=== PATIENT | female | born 1965 ===

== ENCOUNTER 2019-09-18 19:04 | Emergency (ER) | payer OTHER ==
[2019-09-18 20:46] VITALS: BP 144/80
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
[2019-09-18] MEDS ORDERED: FAMOTIDINE 20 MG/2 ML INJ IV ONE (21:13)
[2019-09-18] MEDS ORDERED: IBUPROFEN 800 MG TAB PO ONE (21:13)
[2019-09-18] MEDS ORDERED: ACETAMINOPHEN 500 MG TAB PO ONE (21:13)
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
[2019-09-18 21:49] LABS: Basophils % (Auto) 0.5 % (0.0-1.8); Eosinophils % (Auto) 0.1 % (0.0-4.3); Hemoglobin 13.6 gm/dl (10.1-14.3); Lymphocytes # (Auto) 1.5 K/mm3 (1.2-5.4); Lymphocytes % (Auto) 15.2 % (13.4-35.0); Mean Corpuscular HGB Conc 34 % (30-34); Mean Corpuscular Volume 89 fl (79-97); Monocytes # (Auto) 0.7 K/mm3 (0.0-0.8); Monocytes % (Auto) 6.8 % (0.0-7.3); Platelet Count 223 K/mm3 (140-440); Red Blood Count 4.49 M/mm3 (3.65-5.03); Red Cell Distribution Width 13.3 % (13.2-15.2)
[2019-09-18 22:20] LABS: Alanine Aminotransferase 29 units/L (7-56); Albumin 4.8 g/dL (3.9-5); BUN/Creatinine Ratio 24; Blood Urea Nitrogen 12 mg/dL (7-17); Calcium 9.5 mg/dL (8.4-10.2); Hemolysis Index 24
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
== END 2019-09-19 00:30 | disposition home or self-care (01) ==
LOC: ED 19:04
DX: S39.011A Strain of muscle, fascia and tendon of abdomen, initial encounter (principal); S20.219A Contusion of unspecified front wall of thorax, initial encounter; M62.838 Other muscle spasm; M62.830 Muscle spasm of back; I10 Essential (primary) hypertension; Z98.890 Other specified postprocedural states; Z91.030 Bee allergy status; Z88.8 Allergy status to other drugs, medicaments and biological substances; Z79.899 Other long term (current) drug therapy; V49.49XA Driver injured in collision with other motor vehicles in traffic accident, initial encounter; Y93.89 Activity, other specified; Y92.410 Unspecified street and highway as the place of occurrence of the external cause; Y99.8 Other external cause status
CPT/HCPCS: 36415; 71046; 72125; 72128; 74177; 80053; 83690; 85025; 96374; 99285; Q9967